=== PATIENT | female | born 1945 | race Caucasian/White ===

== ENCOUNTER 2016-12-04 09:14 | Emergency (ER) | payer OTHER, BC ==
[2016-12-04 09:53] LABS: COLOR YELLOW; LEUKOCYTE ESTERASE,URINE 1+ (NEGATIVE); NITRITE,URINE POSITIVE (NEGATIVE); PH,URINE 7.5 (5.0-7.5)
[2016-12-04 10:00] VITALS: BP 143/67; PULSE 94; RESP 16; TEMP 99.3; O2SAT 96
[2016-12-04 10:06] LABS: RBC,URINE 50-182 /hpf (0-3); RENAL EPITHELIAL CELLS OCCASIONAL /hpf (NONE SEEN); WBC,URINE 50-182 /hpf (0-3)
[2016-12-04 10:07] LABS: BACTERIA 2+ /hpf (NONE SEEN)
[2016-12-04] MEDS ORDERED: CEPHALEXIN 500 MG CAP PO ONE (10:23)
[2016-12-04] MEDS ORDERED: PHENAZOPYRIDINE HCL 200 MG TAB PO ONE (10:23)
--- NOTE | 2016-12-04 10:27 | UCPHY ---
H & P Patient Type: New Chief Complaint Nursing Narrative: C/o burning with urination, bilat flank pain , urinary frequency x 3 days. Denies fever. Time Seen by Provider: 12/04/16 10:19 HPI/ROS: CHIEF COMPLAINT: Dysuria HISTORY OF PRESENT ILLNESS: The patient is a 71-year-old healthy female who comes to the Urgent Care complaining of 3 days dysuria. No flank pain. Some urgency. Not increased frequency. No rashes or discharge. She states that this feels similar to previous urinary tract infections. REVIEW OF SYSTEMS: Constitutional: denies: chills, fever, recent illness, recent injury EENTM: denies: blurred vision, double vision, nose congestion Respiratory: denies: cough, shortness of breath Cardiac: denies: chest pain, irregular heart rate, lightheadedness, palpitations Gastrointestinal/Abdominal: denies: abdominal pain, diarrhea, nausea, vomiting, blood streaked stools Genitourinary: See HPI Musculoskeletal: denies: joint pain, muscle pain Skin: denies: lesions, rash, jaundice, bruising Neurological: denies: headache, numbness, paresthesia, tingling, dizziness, weakness Hematologic/Lymphatic: denies: blood clots, easy bleeding, easy bruising Immunologic/allergic: denies: HIV/AIDS, transplant EXAM: GENERAL: Well-appearing, well-nourished and in no acute distress. HEAD: Atraumatic, normocephalic. EYES: Pupils equal round and reactive to light, extraocular movements intact, sclera anicteric, conjunctiva are normal. ENT: TMs normal, nares patent, oropharynx clear without exudates. Moist mucous membranes. NECK: Normal range of motion, supple without lymphadenopathy or JVD. LUNGS: Breath sounds clear to auscultation bilaterally and equal. No wheezes rales or rhonchi. HEART: Regular rate and rhythm without murmurs, rubs or gallops. ABDOMEN: Soft, nontender, normoactive bowel sounds. No guarding, no rebound. No masses appreciated. BACK: No CVA tenderness, no spinal tenderness, step-offs or deformities EXTREMITIES: Normal range of motion, no pitting or edema. No clubbing or cyanosis. NEUROLOGICAL: Cranial nerves II through XII grossly intact. Normal speech, normal gait. 5/5 strength, normal movement in all extremities, normal sensation PSYCH: Normal mood, normal affect. SKIN: Warm, dry, normal turgor, no visible rashes or lesions. Source: Patient Exam Limitations: No limitations - Personal History Current Tetanus Diphtheria and Acellular Pertussis (TDAP): Yes Tetanus Vaccine Date: within 10 years - Medical/Surgical History Hx Asthma: No Hx Chronic Respiratory Disease: No Hx Diabetes: No Hx Cardiac Disease: No Hx Renal Disease: No Hx Cirrhosis: No Hx Alcoholism: No Hx HIV/AIDS: No Hx Splenectomy or Spleen Trauma: No Other PMH: HTN, hyperlipidemia, hypothyroidism, chronic stomach bloating, appendectomy - Family History Significant Family History: No pertinent family hx - Social History Smoking Status: Never smoked Alcohol Use: None Drug Use: None Constitutional: Initial Vital Signs Temperature (C) 37.4 C 12/04/16 09:54 Heart Rate 94 12/04/16 09:54 Respiratory Rate 16 12/04/16 09:54 Blood Pressure 143/67 H 12/04/16 09:54 O2 Sat (%) 96 12/04/16 09:54 O2 Delivery Mode Room Air Allergies/Adverse Reactions: Echinacea Allergy (Intermediate, Verified 12/04/16 10:00) Rash Home Medications: Medication Instructions Recorded Atorvastatin Calcium [Lipitor 20 03/13/12 mg (RX)] Calcium Citrate W/Vit D [Citracal 03/13/12 + D] Chlorthalidone [Chlorthalidone 25 03/13/12 mg (RX)] Dexlansoprazole [Dexilant] 03/13/12 Diltiazem Cd [Cardizem ER 120 MG 03/13/12 (*)] FLUoxetine [Prozac 20 MG (RX)] 03/13/12 Levothyroxine [Synthroid 150 mcg 03/13/12 (RX)] Losartan Potassium [Cozaar 50 mg 03/13/12 (RX)] Nortriptyline HCl 03/13/12 Ranitidine HCl [Ranitidine HCl 300 03/13/12 mg] amLODIPine BESYLATE [Norvasc 10 mg 03/13/12 (RX)] Cephalexin [Keflex] 500 mg PO TID #21 cap 12/04/16 Phenazopyridine HCl [Pyridium] 200 mg PO TID #6 tab 12/04/16 Medical Decision Making ED Course/Re-evaluation: 10:25 a.m. the patient urinalysis is positive. I will start her on Keflex and Pyridium. She does not typically [place] infections. She is happy with this and declines further workup or testing. We will send her urine for culture. Differential Diagnosis: Partial list of the Differential diagnosis considered include but were not limited to; urinary tract infection, pyelonephritis, kidney stone and although unlikely based on the history and physical exam, I also considered diverticulitis, pelvic infection. I discussed these differential diagnoses and the plan with the patient as well as the usual and expected course. The patient understands that the diagnosis is provisional and that in medicine we are not always correct and that further workup is often warranted. Usual and customary warnings were given. All of the patient's questions were answered. The patient was instructed to return to the emergency department should the symptoms at all worsen or return, otherwise to followup with the physician as we discussed. - Data Points Laboratory Results: 12/04/16 09:27 Urine Color YELLOW Urine Appearance CLOUDY Urine pH 7.5 (5.0-7.5) Ur Specific [place] 1.010 (1.002-1.030) Urine Protein 1+ H (NEGATIVE) Urine Ketones NEGATIVE (NEGATIVE) Urine Blood 3+ H (NEGATIVE) Urine Nitrate POSITIVE H (NEGATIVE) Urine Bilirubin NEGATIVE (NEGATIVE) Urine Urobilinogen 0.2 EU EU (0.2-1.0) Ur Leukocyte Esterase 1+ H (NEGATIVE) Urine RBC 50-182 /hpf H /hpf (0-3) Urine WBC 50-182 /hpf H /hpf (0-3) Ur Epithelial Cells 1+ /lpf /lpf (NONE-1+) Ur Renal Epithelial Cell OCCASIONAL /hpf H /hpf (NONE SEEN) Urine Bacteria 2+ /hpf H /hpf (NONE SEEN) Ur Culture Indicated? INDICATED H (NI) Urine Glucose NEGATIVE (NEGATIVE) Medications Given: Discontinued Medications Cephalexin HCl (Keflex) 500 mg PO EDNOW ONE PRN Reason: Protocol Stop: 12/04/16 10:24 Last Admin: 12/04/16 10:43 Dose: 500 mg Phenazopyridine HCl (Pyridium) 200 mg PO EDNOW ONE Stop: 12/04/16 10:24 Last Admin: 12/04/16 10:43 Dose: 200 mg Departure - Departure Disposition: Home, Routine, Self-Care Clinical Impression: Urinary tract infection Qualifiers: Urinary tract infection type: acute cystitis Hematuria presence: without hematuria Qualified Code(s): N30.00 - Acute cystitis without hematuria Condition: Fair Instructions: Urinary Tract Infection in Women (ED) Referrals: Jori Pham MD [Medical Doctor] - As per Instructions Prescriptions: Cephalexin [Keflex] 500 mg PO TID #21 cap Phenazopyridine HCl [Pyridium] 200 mg PO TID #6 tab - PQRS PQRS Measurement: 134: Depression screening and followup, PRIME MD-PHQ2 (12 years and older) Over the last 2 weeks, how often have you been bothered by any of the following problems? 1. Feeling down, depressed, or hopeless? 2. Little interest or pleasure in doing things? Patient answered no to both 1 and 2 130: Documentation of medications. Reviewed all patient medications, doses, route and frequency. 226: Do you smoke? No. 47: 65 and older: Advanced care planning. Patient designates surrogate decision maker as spouse . Patient has advanced directive. 51: 18 years old and older with diagnosis of COPD, spirometry performance. Spirometry not performed; equipment not available. 52: 18 years old and older with COPD and symptoms of COPD or FEV1<60% predicted prescribed a B Agonist. Not applicable
== END 2016-12-04 10:43 | disposition home or self-care (01) ==
LOC: CED 09:14
DX: N30.00 Acute cystitis without hematuria (principal); I10 Essential (primary) hypertension; E78.5 Hyperlipidemia, unspecified; E03.9 Hypothyroidism, unspecified; Z87.440 Personal history of urinary (tract) infections
CPT/HCPCS: 81003-PO; 81015-PO; 99204-PO; G0463-PO